=== PATIENT | male | born 1965 | race Caucasian/White ===

== ENCOUNTER 2022-07-29 06:57 | Day surgery (SDC) | payer OTHER ==
[~2022-07-29] VITALS: Ht 188 cm; Wt 115.7 kg
[~2022-07-29 06:57] MED LIST: CEFAZOLIN SOD 1 GM in D5W 50 ML IV ONE
[2022-07-29] MEDS ORDERED: ONDANSETRON HCL 4 MG/2 ML VIAL IVP ONE (10:00)
[2022-07-29] MEDS ORDERED: GLYCOPYRROLATE 0.2 MG/ML VIAL IJ ONE (10:00)
[2022-07-29] MEDS ORDERED: ROCURONIUM BROMIDE 10 MG/ML (ZEMURON) IV ONE (10:00)
[2022-07-29] MEDS ORDERED: NEOSTIGMINE METHYLSULFATE 1 MG/ML, 10 ML VIAL IVP ONE (10:00)
[2022-07-29] MEDS ORDERED: fentaNYL CITRATE/PF 100 MCG/2 ML AMP IVP ONE (10:00)
[2022-07-29] MEDS ORDERED: BUPIVACAINE /PF 0.25% 30 ML VIAL INJ ONE (10:00)
[2022-07-29] MEDS ORDERED: MIDAZOLAM HCL 5 MG/5 ML VIAL IVP ONE (10:00)
[2022-07-29] MEDS ORDERED: NS 1000 ML IV.SOLN IV ONE (10:00)
[2022-07-29] MEDS ORDERED: PROPOFOL 200MG/ 20ML VIAL (DIPRIVAN) IV ONE (10:00)
[2022-07-29] MEDS ORDERED: SEVOFLURANE 15 MIN GAS INH ONE (10:00)
[2022-07-29] MEDS ORDERED: SUCCINYLCHOLINE CHLORIDE 20 MG/ML(QUELICIN) IVP ONE (10:00)
[2022-07-29] MEDS ORDERED: NS IRRIG SOLN 1000 ML IR ONE (10:00)
[2022-07-29] MEDS ORDERED: CEFAZOLIN 2 GM IVPB PREMIX 50 ML IV ONE (10:00)
[2022-07-29] MEDS ORDERED: LR 1,000 ML IV.SOLN IV ONE (10:00)
[2022-07-29] MEDS ORDERED: LABETALOL 100 MG/ 20ML VIAL IVP PRN (11:00)
[2022-07-29] MEDS ORDERED: METOCLOPRAMIDE HCL 10 MG/2 ML VIAL IVP PRN (11:00)
[2022-07-29] MEDS ORDERED: MEPERIDINE HCL/PF 25 MG/ML DISP.SYRIN IVP PRN (11:00)
[2022-07-29] MEDS ORDERED: ONDANSETRON HCL 4 MG/2 ML VIAL IVP PRN (11:00)
[2022-07-29] MEDS ORDERED: IBUPROFEN 800 MG TABLET PO PRN (11:00)
[2022-07-29] MEDS ORDERED: HYDROcodone/ACETAMIN 5-325 MG TAB (NORCO/ VICODIN) PO PRN ×2 (11:30)
[2022-07-29] MEDS ORDERED: HYDROmorphone 1 MG/ML INJ. CARTRIDGE IVP PRN (11:30)
[2022-07-29] MEDS ORDERED: D5/0.45 NS 1,000 ML IV SCH (11:30)
[2022-07-29] MEDS ORDERED: HYDROmorphone 1 MG/ML INJ. CARTRIDGE ONE ×2 (12:22→12:59)
[2022-07-29] MEDS: HYDROmorphone 1 MG/ML INJ. CARTRIDGE IVP PRN ×4 (12:39→13:13)
[2022-07-29 13:49] VITALS: BP_SYST 103
[2022-07-29] MEDS ORDERED: HYDROcodone/ACETAMIN 5-325 MG TAB (NORCO/ VICODIN) ONE (14:13)
== END 2022-07-29 15:25 | disposition home or self-care (01) ==
LOC: SDS 06:57 → SMU 06:58 → SDS 15:25
PROVIDERS: ATTEND Colon & Rectal Surgery
DX: K80.10 Calculus of gallbladder with chronic cholecystitis without obstruction (principal); E78.2 Mixed hyperlipidemia; E66.01 Morbid (severe) obesity due to excess calories; Z20.822 Contact with and (suspected) exposure to COVID-19; Z68.34 Body mass index [BMI] 34.0-34.9, adult; Z79.899 Other long term (current) drug therapy
CPT/HCPCS: 36415; 87426; 47562; 88304; J3490 ×2; J0690 ×2; J2250; J2405; J2704; J0330; J3010; J1170; Q9967; J7060; J7120; J7030; C1758; C1727; J2710

== ENCOUNTER 2023-06-25 05:30 | Day surgery (SDC) | payer OTHER ==
[~2023-06-25] VITALS: Ht 185.4 cm; Wt 109.8 kg
[~2023-06-25 05:30] MED LIST changes: -CEFAZOLIN SOD 1 GM in D5W 50 ML IV ONE; +VANCOMYCIN HCL 1,500 MG in D5W 250 ML IV ONE
[2023-06-25] MEDS ORDERED: ACETAMINOPHEN 500 MG TABLET ONE (05:39)
[2023-06-25] MEDS ORDERED: GABAPENTIN 300 MG CAPSULE ONE (05:40)
[2023-06-25] MEDS ORDERED: CELECOXIB 200 MG CAPSULE ONE (05:40)
[2023-06-25] MEDS ORDERED: oxyCODONE HCL 10 MG TAB.ER.12H PO ONE ×2 (05:40→06:00)
[2023-06-25] MEDS ORDERED: SCOPOLAMINE HYDROBROMIDE 1 MG PATCH .72 H (TRANSDERM-SCOP) TD ONE ×2 (05:40→06:00)
[2023-06-25] MEDS ORDERED: CELECOXIB 200 MG CAPSULE PO ONE (06:00)
[2023-06-25] MEDS ORDERED: ACETAMINOPHEN 500 MG TABLET PO ONE (06:00)
[2023-06-25] MEDS ORDERED: GABAPENTIN 300 MG CAPSULE PO ONE (06:00)
[2023-06-25] MEDS ORDERED: ceFAZolin SODIUM 2 GM in D5W 50 ML IV ONE (07:00)
[2023-06-25] MEDS ORDERED: WATER FOR IRRIGATION,STERILE 1,000 ML IRRIG.SOLN IR ONE (07:30)
[2023-06-25] MEDS ORDERED: VANCOMYCIN HCL 1000 MG/VIAL IV ONE (07:30)
[2023-06-25] MEDS ORDERED: LR 1,000 ML IV.SOLN IV ONE (07:30)
[2023-06-25] MEDS ORDERED: ONDANSETRON HCL 4 MG/2 ML VIAL ONE (07:30)
[2023-06-25] MEDS ORDERED: ePHEDrine sulfate 50 MG/ML VIAL ONE (07:30)
[2023-06-25] MEDS ORDERED: NS IRRIG SOLN 1000 ML IR ONE (07:30)
[2023-06-25] MEDS ORDERED: PROPOFOL 200MG/ 20ML VIAL (DIPRIVAN) IV ONE (07:30)
[2023-06-25] MEDS ORDERED: NS 1000 ML IV.SOLN IV ONE (07:30)
[2023-06-25] MEDS ORDERED: MIDAZOLAM HCL 2 MG/2 ML VIAL (VERSED) ONE (07:30)
[2023-06-25] MEDS ORDERED: BUPIVACAINE /DEX PF 0.75% SPINAL 2 ML AMP INJ ONE (07:30)
[2023-06-25] MEDS ORDERED: NORMAL SALINE 10 ML VIAL ONE (07:30)
[2023-06-25] MEDS ORDERED: KETOROLAC TROMETHAMINE 30 MG VIAL ONE (07:30)
[2023-06-25] MEDS ORDERED: DEXAMETHASONE SOD PHOSPHATE 4 MG/ML VIAL ONE (07:30)
[2023-06-25] MEDS ORDERED: TRANEXAMIC ACID 1,000 MG/10 ML VIAL ONE (07:30)
[2023-06-25] MEDS ORDERED: ROPIVACAINE 40 MG/20 ML AMP EP ONE (07:30)
[2023-06-25] MEDS ORDERED: SEVOFLURANE 15 MIN GAS INH ONE (07:30)
[2023-06-25] MEDS ORDERED: ACETAMINOPHEN I.V. 1000 MG 100 ML IV ONE (08:30)
[2023-06-25] MEDS ORDERED: HYDROmorphone 1 MG/ML INJ. CARTRIDGE IVP PRN (08:30)
[2023-06-25] MEDS ORDERED: KETOROLAC TROMETHAMINE 30 MG VIAL IVP PRN (08:30)
[2023-06-25] MEDS ORDERED: ONDANSETRON HCL 4 MG/2 ML VIAL IVP PRN (08:30)
[2023-06-25] MEDS ORDERED: MIDAZOLAM HCL 5 MG/5 ML VIAL IVP PRN (08:30)
[2023-06-25] MEDS ORDERED: METOCLOPRAMIDE HCL 10 MG/2 ML VIAL IVP PRN (08:30)
[2023-06-25] MEDS ORDERED: ACETAMINOPHEN I.V. 1000 MG 0 ML IV ONE (09:52)
[2023-06-25] MEDS ORDERED: NS 250 ML IV ONE (12:00)
[2023-06-25] MEDS ORDERED: NS 200 ML IV ONE (12:00)
[2023-06-25 12:39] VITALS: BP_SYST 112; PULSE 64; RESP 16; TEMP 97.7; O2SAT 97
[2023-06-25 12:49] VITALS: BP_SYST 112; PULSE 64; RESP 16; TEMP 97.7
[2023-06-25 16:06] VITALS: BP_SYST 116; PULSE 68; RESP 18; TEMP 97.7; O2SAT 99
== END 2023-06-25 16:30 | disposition home or self-care (01) ==
LOC: SDS 05:30 → SMU 05:30 → SDS 16:30
PROVIDERS: ATTEND Orthopaedic Surgery
DX: M17.11 Unilateral primary osteoarthritis, right knee (principal); E78.5 Hyperlipidemia, unspecified; F41.9 Anxiety disorder, unspecified; Z98.84 Bariatric surgery status; Z90.49 Acquired absence of other specified parts of digestive tract
CPT/HCPCS: 27447; 97162; 64447; 73560; 97110; 97530; 97116; 88305; 88311; J3370 ×2; J3490 ×2; J1100; J1885; J3465; J2405; J2704; J2795; J1170; J7060 ×2; J7120; J7030; C1713 ×2; C1776; J0131; J7050

== ENCOUNTER 2023-06-28 15:17 | Emergency (ER) | payer OTHER ==
[~2023-06-28] VITALS: Ht 185.4 cm; Wt 108.9 kg
[2023-06-28 15:20] VITALS: BP_SYST 110; PULSE 89; RESP 19; TEMP 98.4; O2SAT 97
[2023-06-28] MEDS ORDERED: MORPHINE 4 MG INJ. 4 MG/ML VIAL IM ONE (15:30)
[2023-06-28 16:06] LABS: BASOPHILS % (AUTO) 0.5 % (0.0-2.0); EOSINOPHILS # (AUTO) 0.1 K/uL (0.0-0.4); EOSINOPHILS % (AUTO) 2.2 % (0.0-4.0); LYMPHOCYTES # (AUTO) 1.1 K/uL (1.0-5.5); LYMPHOCYTES % (AUTO) 19.7 % (20.5-51.5); MEAN CORPUSCULAR HEMOGLOBIN 22 pg (27-31); MEAN CORPUSCULAR HGB CONC 31 % (32-36); MEAN CORPUSCULAR VOLUME 69 fL (79.0-98.0); MONOCYTES # (AUTO) 0.5 K/uL (0.0-1.0); MONOCYTES % (AUTO) 8.7 % (1.7-9.3); NEUTROPHILS % (AUTO) 68.9 % (40.0-70.0); PLATELET COUNT (AUTO) 262 K/uL (130-430); RED BLOOD CELL COUNT(AUTO) 5.09 MIL/uL (4.2-6.2); WHITE BLOOD COUNT (AUTO) 5.8 K/uL (4.8-10.8)
[2023-06-28 16:13] LABS: ANION GAP 12 (5-15); CARBON DIOXIDE 27 mmol/L (23-29); CHLORIDE 96 mmol/L (98-107); CREATININE 1.02 mg/dL (0.55-1.30); GFR AFRICAN AMERICAN 97 mL/min (>90); GLUCOSE 111 mg/dL (74-106); POTASSIUM 3.6 mmol/L (3.5-5.1); SODIUM SERUM 135 mmol/L (136-145); UREA NITROGEN, BLOOD 7 mg/dL (8-21)
[2023-06-28 16:28] LABS: GFR NON AFRICAN-AMERICAN 80 mL/min (>90)
[2023-06-28 16:48] LABS: ALANINE AMINOTRANSFERASE 68 U/L (12-78); ASPARTATE AMINOTRANSFERASE 54 U/L (10-37); TOTAL BILIRUBIN 0.9 mg/dL (0.0-1.0); TOTAL PROTEIN, SERUM 6.8 g/dL (6.4-8.3)
[2023-06-28 17:12] LABS: ANISOCYTOSIS 2+; HYPOCHROMASIA 1+; OVALOCYTES MODERATE
[2023-06-28] MEDS ORDERED: OXYIR5 PO (17:33)
[2023-06-28 18:12] VITALS: BP_SYST 115; PULSE 90; RESP 20; TEMP 99.3; O2SAT 97
== END 2023-06-28 18:12 | disposition home or self-care (01) ==
LOC: SED 15:17
DX: M25.561 Pain in right knee (principal); Z96.651 Presence of right artificial knee joint; Z79.899 Other long term (current) drug therapy
CPT/HCPCS: 99284; 80053; 85025; 36415; 73560; 96372; 83605; 82397; J2270